=== PATIENT | female | born 1995 | race Caucasian/White ===

== ENCOUNTER 2017-06-18 07:28 | Emergency (ER) | payer MEDICAID ==
[~2017-06-18] VITALS: Ht 175.3 cm; Wt 105.0 kg
[2017-06-18] MEDS ORDERED: TRAMADOL 50MG TABLET PO ONE (08:00)
[2017-06-18 08:21] LABS: INR 0.9; PROTHROMBIN TIME 9.9 sec (9.4-11.6)
[2017-06-18 08:24] LABS: CHLORIDE 107 mEq/L (98-107)
[2017-06-18 08:30] LABS: BASOPHILS % 0.7 % (0.0-2.0); EOSINOPHILS % 4.3 % (0.0-5.0); HEMATOCRIT. 37.9 % (36.0-48.0); HEMOGLOBIN. 12.6 g/dL (12.0-16.0); LYMPHOCYTES % 21.2 % (20.0-50.0); MEAN CORPUSCULAR HEMOGLOBIN 28.8 pg (28.0-32.0); MEAN CORPUSCULAR VOLUME 86.8 fL (81.0-99.0); MEAN PLATELET VOLUME 8.9 fl (7.4-10.4); MONOCYTES % 7.6 % (2.0-8.0); NEUTROPHILS % 66.2 % (40.0-76.0); PLATELET 281 x1000/uL (130-400); RED BLOOD CELL COUNT 4.36 mill/uL (4.2-5.4); RED CELL DISTRIBUTION WIDTH 13.6 % (11.6-14.6)
[2017-06-18 11:14] VITALS: BP 101/57
== END 2017-06-18 11:23 | disposition home or self-care (01) ==
LOC: ER 07:37
DX: K80.20 Calculus of gallbladder without cholecystitis without obstruction (principal); K76.0 Fatty (change of) liver, not elsewhere classified; Z98.890 Other specified postprocedural states
CPT/HCPCS: 36415; 76705; 80053; 81025; 83690; 85025; 85610; 99285

== ENCOUNTER 2017-07-23 05:52 | Emergency (ER) | payer MEDICAID ==
[~2017-07-23] VITALS: Ht 177.8 cm; Wt 104.0 kg
[2017-07-23] MEDS ORDERED: MORPHINE SULFATE 4 MG/ML CPJ (NOT FOR IM USE) IV STA (07:58)
[2017-07-23] MEDS ORDERED: FAMOTIDINE 20MG/2ML VIAL IV STA (07:58)
[2017-07-23] MEDS ORDERED: ONDANSETRON HCL 4MG/2ML VIAL IV STA (07:58)
[2017-07-23] MEDS ORDERED: SODIUM CHLORIDE 0.9% 1,000 ML IV ONE (07:58)
[2017-07-23 08:35] LABS: CHLORIDE 105 mEq/L (98-107)
[2017-07-23 09:17] LABS: HCG SCREEN NEGATIVE
[2017-07-23 10:41] VITALS: BP 107/54
[2017-07-23 11:11] LABS: BASOPHILS % 0.6 % (0.0-2.0); EOSINOPHILS % 0.8 % (0.0-5.0); HEMATOCRIT. 37.9 % (36.0-48.0); LYMPHOCYTES % 11.4 % (20.0-50.0); MEAN CORPUSCULAR VOLUME 87.3 fL (81.0-99.0); MONOCYTES % 4.4 % (2.0-8.0); NEUTROPHILS % 82.8 % (40.0-76.0); PLATELET 296 x1000/uL (130-400); RED BLOOD CELL COUNT 4.34 mill/uL (4.2-5.4); RED CELL DISTRIBUTION WIDTH 14.3 % (11.6-14.6)
== END 2017-07-23 10:51 | disposition home or self-care (01) ==
LOC: ER 05:52
DX: K80.50 Calculus of bile duct without cholangitis or cholecystitis without obstruction (principal)
CPT/HCPCS: 36415; 80053; 83690; 84703; 85025; 96361; 96374; 96375; 99285; J2270; J2405; J3490; J7030; Z7610

== ENCOUNTER 2018-11-06 01:33 | Emergency (ER) | payer MEDICAID, OTHER ==
[~2018-11-06] VITALS: Ht 177.8 cm; Wt 100.0 kg
[2018-11-06] MEDS ORDERED: SODIUM CHLORIDE 0.9% 1,000 ML IV ONE (02:11)
[2018-11-06] MEDS ORDERED: KETOROLAC 30MG/ML VIAL IV STA (02:11)
[2018-11-06] MEDS ORDERED: ONDANSETRON HCL 4MG/2ML INJ IV STA (02:11)
[2018-11-06 02:24] LABS: CLARITY URINE CLEAR (CLEAR); COLOR URINE YELLOW (YELLOW); KETONES URINE TRACE (NEGATIVE); LEUKOCYTE ESTERASE URINE NEGATIVE (NEGATIVE); NITRITE URINE NEGATIVE (NEGATIVE); OCCULT BLOOD URINE NEGATIVE (NEGATIVE); PH URINE 6.5 (4.5-8.0); PROTEIN URINE NEGATIVE (NEGATIVE); SPECIFIC GRAVITY URINE 1.034 (1.005-1.030)
[2018-11-06 02:29] LABS: BASOPHILS % 0.8 % (0.0-2.0); EOSINOPHILS % 2.2 % (0.0-5.0); HEMATOCRIT. 37.5 % (36.0-48.0); HEMOGLOBIN. 12.7 g/dL (12.0-16.0); LYMPHOCYTES % 15.3 % (20.0-50.0); MEAN CORPUSCULAR HEMOGLOBIN 29.8 pg (28.0-32.0); MEAN CORPUSCULAR VOLUME 87.9 fL (81.0-99.0); MEAN PLATELET VOLUME 8.6 fl (7.4-10.4); NEUTROPHILS % 75.7 % (40.0-76.0); PLATELET 292 x1000/uL (130-400); RED BLOOD CELL COUNT 4.26 mill/uL (4.2-5.4); RED CELL DISTRIBUTION WIDTH 13.7 % (11.6-14.6)
[2018-11-06 02:34] LABS: CHLORIDE 108 mEq/L (98-107)
[2018-11-06 02:35] LABS: PROTHROMBIN TIME 9.9 sec (9.6-11.0)
[2018-11-06] MEDS ORDERED: INSULIN REGULAR (HUMULIN R) 300UNITS/3ML SUBCUT ONE (05:45)
[2018-11-06 05:48] VITALS: BP 104/55
== END 2018-11-06 05:50 | disposition home or self-care (01) ==
LOC: ER 01:33
DX: K80.20 Calculus of gallbladder without cholecystitis without obstruction (principal)
CPT/HCPCS: 36415; 76705; 80053; 81003; 81025; 83690; 85025; 85610; 96361; 96374; 96375; 99284; J1885; J2405; Z7610

== ENCOUNTER 2022-09-18 16:42 | Emergency (ER) | payer OTHER ==
[~2022-09-18] VITALS: Ht 177.8 cm; Wt 127.0 kg
[2022-09-18 16:48] VITALS: BP 131/90
== END 2022-09-18 21:00 | disposition home or self-care (01) ==
LOC: ER 16:42
DX: S83.001A Unspecified subluxation of right patella, initial encounter (principal); W18.39XA Other fall on same level, initial encounter; Y93.89 Activity, other specified; Y92.89 Other specified places as the place of occurrence of the external cause; Y99.8 Other external cause status; Z90.49 Acquired absence of other specified parts of digestive tract
CPT/HCPCS: 73564; 73700; 81025; 99284

== ENCOUNTER 2023-12-21 18:55 | Emergency (ER) | payer OTHER ==
[~2023-12-21] VITALS: Ht 177.8 cm; Wt 121.0 kg
[2023-12-21 19:12] VITALS: O2SAT 99
[2023-12-21] MEDS: CYCLOBENZAPRINE 10MG TABLET PO ONE (22:27)
[2023-12-21] MEDS ORDERED: NAPR-1176 MT (23:06)
[2023-12-21 23:10] VITALS: BP 118/79; PULSE 63; RESP 17; TEMP 36.89184; O2SAT 100
== END 2023-12-21 23:20 | disposition home or self-care (01) ==
LOC: ER 18:55
DX: T75.4XXA Electrocution, initial encounter (principal); D64.9 Anemia, unspecified; Z90.49 Acquired absence of other specified parts of digestive tract; Z98.890 Other specified postprocedural states; W86.8XXA Exposure to other electric current, initial encounter; Y93.89 Activity, other specified; Y92.89 Other specified places as the place of occurrence of the external cause; Y99.8 Other external cause status
CPT/HCPCS: 93005; 99283